=== PATIENT | female | born 1975 | race Caucasian/White ===

== ENCOUNTER 2020-09-02 10:13 | Emergency (ER) | payer BC ==
[2020-09-02] MEDS ORDERED: Ketorolac Tromethamine 30 MG/ML VIAL ONE (10:49)
[2020-09-02] MEDS ORDERED: Ondansetron ODT 4 MG TAB ONE (10:49)
--- NOTE | 2020-09-02 11:19 | RAD ---
RADIOGRAPH LUMBAR SPINE 2 VIEWS: DATE: 09/02/2020 HISTORY: 45-year-old female status post acute traumatic injury to lumbar spine FINDINGS: 5 lumbar-type vertebrae. Thoracic spine is tilted to the left relative to lumbar spine. Vertebral bod y heights are maintained. No spondylolisthesis. Mild to moderate disc space narrowing at L4-5. Moderate to severe disc space narrowing at L5-S1. IMPRESSION: 1) no compression fracture. 2.) Degenerative disc disease at L4-5 and especially L5-S1
[2020-09-02] MEDS ORDERED: HYDROcodone/Acetaminophen 10/325 mg Tablet ONE (11:26)
== END 2020-09-02 11:33 | disposition home or self-care (01) ==
LOC: MADERS 10:13
DX: M47.816 Spondylosis without myelopathy or radiculopathy, lumbar region (principal); M41.9 Scoliosis, unspecified; W18.2XXA Fall in (into) shower or empty bathtub, initial encounter
CPT/HCPCS: 72100; 96372; J1885; Q0162